=== PATIENT | male | born 1970 | race Caucasian/White ===

== ENCOUNTER 2017-10-11 19:36 | Emergency (ER) | payer OTHER ==
[~2017-10-11] VITALS: Ht 182.9 cm; Wt 101.0 kg
[2017-10-11 22:02] VITALS: BP 159/96
== END 2017-10-11 22:02 | disposition home or self-care (01) ==
LOC: EXP 19:36 → EME 19:36 → EXP 22:02
PROC: 0HQGXZZ Repair Left Hand Skin, External Approach (ICD-10-PCS; principal; 2017-10-11)
DX: S61.412A Laceration without foreign body of left hand, initial encounter (principal); W26.0XXA Contact with knife, initial encounter; F17.200 Nicotine dependence, unspecified, uncomplicated
CPT/HCPCS: 99281; 99283; S0020